=== PATIENT | male | born 2000 | race Caucasian/White ===

== ENCOUNTER 2021-10-23 16:57 | Emergency (ER) | payer MEDICAID ==
[~2021-10-23] VITALS: Ht 182.9 cm; Wt 68.0 kg
[2021-10-23 16:57] VITALS: BP 132/83
[2021-10-23] MEDS ORDERED: IBUPROFEN 600 MG TAB PO ONE (17:20)
[2021-10-23] MEDS ORDERED: IBUP-2213 PO (18:09)
--- NOTE | 2021-10-23 18:15 | NUR ---
PATIENT BIB [employer]. PATIENT EXAMINED BY JAVAD MATIAS. PATIENT MEDICALLY CLEARED AND RELEASED IN CUSTODY IN STABLE CONDITION. ORIGINAL PRE-BOOK FORM GIVEN TO OFFICER. DISCHARGE INSTRUCTIONS GIVEN TO OFFICER. RX FOR IBUPROFEN GIVEN.
== END 2021-10-23 18:15 ==
LOC: MED 16:57
DX: Z02.89 Encounter for other administrative examinations (principal); R51.9 Headache, unspecified; Z98.890 Other specified postprocedural states; Z79.1 Long term (current) use of non-steroidal anti-inflammatories (NSAID)
CPT/HCPCS: 99283